=== PATIENT | male | born 2000 | race Caucasian/White ===

== ENCOUNTER 2022-09-20 07:58 | Emergency (ER) | payer MEDICAID, SELFPAY ==
[2022-09-20 08:02] VITALS: BP 160/79; PULSE 82; RESP 20; TEMP 36.7; O2SAT 99; BMI 30.7
[2022-09-20 08:34] LABS: IDNOW Serial# 55D5AD1C; Influenza A Negative (Negative); Influenza B2 Negative (Negative)
[2022-09-20 08:47] LABS: COVID-19 Test Positive (Negative); IDNOW Serial# BCCEAD1C
--- NOTE | 2022-09-20 08:47 | ED.URI ---
HPI - URI/Sore Throat General Chief Complaint: Upper Respiratory Symptoms Stated Complaint: Difficulty breathing Time Seen by Provider: 09/20/22 08:11 Source: patient Mode of arrival: ambulatory Limitations: no limitations History of Present Illness HPI Narrative: Patient is a 22-year-old male who presents to the emergency department for evaluation of productive cough with white phlegm, body aches, and intermittent shortness of breath. He denies any known sick contacts. He states he took an at home COVID-19 test which was negative. He has not taken any [id number] medications for body aches or cough. He denies fevers, chills, ear pain sore throat, chest pain, dyspnea on exertion, nausea, vomiting, abdominal pain, numbness or tingling of the extremities. Review of Systems Review of Systems: Constitutional: No fever. No chills. No weakness. No fatigue. ENT/ Mouth: No Ear Pain, no Nasal Congestion, no sore throat, No Rhinorrhea, No Swallowing Difficulty Skin: No rash or itching. Cardiovascular: No chest pain. No palpitations. Respiratory: No shortness of breath. Positive cough. Positive sputum production. Gastrointestinal: No nausea. No vomiting. No diarrhea. No abdominal pain. Genitourinary: No burning micturition. No urinary frequency. Neurologic: No headache. No dizziness. No syncope. No numbness or tingling in the extremities. Musculoskeletal: Positive myalgias No back pain. No joint pain or stiffness. Yes all other systems are reviewed and are negative PMFSH Past Medical History Attestation statement: The following information was validated with the patient. Source: old records reviewed Social History Social History Advance Directives: No Advance Directives Information Provided: No Physical Exam Vital Signs: Vital Signs: Last Vital Signs Temp 98.0 F 09/20/22 08:02 Pulse 82 09/20/22 08:02 Resp 20 09/20/22 08:02 BP 160/79 H 09/20/22 08:02 Pulse Ox 99 09/20/22 08:02 O2 Del Method 09/20/22 08:02 BMI result Body Mass Index 30.7 Appearance: Alert.?Oriented to person, place and time. No acute distress.?Normal affect. Eyes: Pupils equal, round and reactive to light.? ENT: TM normal bilaterally. Pharynx normal.?? Neck: Normal inspection.? Neck supple.??No cervical adenopathy CVS: Heart sounds normal. Normal heart rate and rhythm.? Pulses normal.?? Respiratory: No respiratory distress.? Lung sounds clear to auscultation bilaterally?? Abdomen: Soft and non-tender. Normoactive bowel sounds. Skin: Skin warm and dry.? Normal skin color.? ? Extremities: No lower extremity edema.? Neuro: Moves all extremities spontaneously. Sensation intact bilaterally. No motor deficits. Ambulates with normal steady gait. Medical Decision Making Medical Decision Making [facility] Narrative: Patient is a 22-year-old male with no reported past medical history, presenting for evaluation of upper respiratory symptoms. COVID-19 testing is positive today, he is outside the window for Paxlovid, given symptom onset 1 week ago. Influenza testing negative. At this time history and physical exam not consistent with ACS/PE/pneumonia. Well-appearing, nontoxic, afebrile, no tachycardia or tachypnea/hypoxia. Speaking clear full sentences, ambulatory with steady gait. Discussed conservative treatment including rest, hydration, Tylenol/ibuprofen as needed for fever and body aches, saline nasal spray, humidifier, qmdz-[id number] cold medication. Advised to follow-up with primary care provider as needed, discussed reasons to return back to the emergency department. All questions were answered. Patient discharged home in stable condition. Differential Diagnosis Differential Diagnoses: The differential diagnosis associated with the presentation includes (Viral upper respiratory infection, pneumonia, bronchitis) Lab Data [facility] Lab Attestation statement: I reviewed the patient's lab results. Labs: Lab Results 09/20/22 09/20/22 Range/Units 08:06 08:06 COVID-19 ([place]) Positive A (Negative) COVID-19 Clin Com See Note Influenza Type A (ETHAN) Negative (Negative) Influenza Type B (ETHAN) Negative (Negative) Influenza A & B Note See Note Tests considered The following testing was considered but not selected: Chest x-ray was considered, however lung sounds are clear throughout, no tachycardia, hypoxia, or tachypnea, low clinical suspicion for pneumonia. Chest x-ray was deferred. Prescription Management I considered prescription management with: Antiviral (Considered Paxlovid, however symptom onset 1 week ago, would be outside of 48 hour window, no prior past medical history that would place him at high risk.) Discharge Plan Discharge Clinical Impression: COVID-19 Patient Disposition: Home, Self-Care Instructions: COVID-19 (Coronavirus Disease 2019) (ED) Additional Instructions: Your flu testing today is negative. Your COVID testing is positive, which is likely the cause of your symptoms. Given you have been having symptoms for the past week, he should continue wearing a mask if you are around other individuals. Per the CDC guidelines you can end isolation after 5 days of symptoms if you are without a fever for 24 hour. Without the use of Tylenol or ibuprofen and your symptoms are improving. Be sure to rest, stay well hydrated drinking plenty of fluids, eat small frequent meals. Tylenol/ibuprofen can be used as needed for fever/pain. Qrpw-idf-ebwxkee cold medications may be helpful as well for symptoms. You may return to the emergency department with any new or worsening symptoms or concerns. Follow-up with your primary care provider as needed. Referrals: Physician,None [Primary Care Provider] - Interventions: ED Discharge Assessment Last Done: 09/20/22 09:14 Discharge Date/Time: 09/20/22 09:16
== END 2022-09-20 09:16 | disposition home or self-care (01) ==
PROVIDERS: Emergency Provider Emergency Medicine
DX: U07.1 COVID-19 (principal)
CPT/HCPCS: 87502; 87635; 99283

== ENCOUNTER 2023-07-04 08:40 | Emergency (ER) | payer MEDICAID, SELFPAY ==
--- NOTE | 2023-07-04 08:47 | ED.GENADULT ---
HPI - General Adult General Chief complaint: Overdose Stated complaint: OD,16MG NARCAN PRIOR TO EMS W/GOOD RESULT Time Seen by Provider: 07/04/23 08:45 Source: EMS Mode of arrival: EMS Limitations: altered mental status History of Present Illness HPI narrative: This is a 22-year-old male hx of IVDA presenting s/p overdose. Suspected opiates according to EMS. EMS reports patient was found on the ground by a friend/bystander who gave 60 mg of intranasal Narcan prior to their arrival. According to patient's mother she reported to EMS that patient advised drugs off line that come from [place], unclear which ones. EMS also reports that it was stated that patient took an unknown amount of Lyrica today. Not on thinners per EMS patient not answering questions. Related Data Allergies Allergy/AdvReac Type Severity Reaction Status Date / Time Unable to Assess Allergy Unverified 07/04/23 08:45 Review of Systems Review of Systems: Yes Unobtainable due to mental status PMFSH Past Medical History Attestation statement: The following information was validated with the patient. Source: old records reviewed and nursing notes reviewed Social History Social History Unable to assess alcohol history related to: Unknown Use of substances other than those prescribed or required for medical reasons: Unable to respond Advance Directives: No Advance Directives Information Provided: No Physical Exam ED Vital Signs: Vital Signs - 24 hr 07/04/23 09:03 07/04/23 11:08 07/04/23 11:12 Temperature 98 F Pulse Rate 102 H 82 Respiratory Rate 17 10 L Blood Pressure 134/82 121/63 Pulse Oximetry 98 86 L 96 Oxygen Delivery Method Room Air Room Air Nasal Cannula Oxygen Flow Rate 2 07/04/23 14:40 07/04/23 17:21 07/04/23 20:30 Temperature Pulse Rate 64 76 78 Respiratory Rate 8 L 10 L 16 Blood Pressure 127/55 L 115/70 126/66 Pulse Oximetry 99 98 100 Oxygen Delivery Method Nasal Cannula Nasal Cannula Nasal Cannula Oxygen Flow Rate 2 2 2 BMI result Body Mass Index 28.2 vss Appearance: + responding only to painful stimuli. not answering questions. Head: Normocephalic, atraumatic, no step-offs or deformities Eyes: Pupils equal, round and reactive to light.? ENT: Pharynx normal.? Neck: Normal inspection.? Neck supple.? CVS: Normal heart rate and rhythm.? Pulses normal.? Respiratory: No respiratory distress.? Breath sounds normal.? Abdomen: Soft and nontender.? Skin: Skin warm and dry.? Normal skin color.? Normal skin turgor.? Extremities: No lower extremity edema.? No calf ttp. 5/5 strength to bilateral upper and lower extremities Neuro: + responding only to painful stimuli. not answering questions. Course Reevaluation(s) Reevaluation #1: Poison Control recommends an EKG repeat in an hour and another EKG 2 hours after that. No other recommendations. Recommend close observation. Time: 09:48 Reevaluation #2: I did have a conversation with patient's mom who tells me that she found an empty bag labled etizolam 100 , tells me that patient has not been home for 2 days, he got kicked out of a friend's house, called another friend crying, was brought back to his mother's house, when he arrived he was unresponsive, 16 mg of nasal Narcan given in total with little to no effect, patient used to be an IV drug abuser however according to mom he is now sniffing drugs. He has been to rehab 5 times and usually signs out against medical advice. Mother has tried dissection 35 patient multiple times. She tells me he is inclined to use research chemical drugs and has been known to get ketamine online. He has had vague comments recently of suicide according to mother she is concerned about this. Due to presentation poor judgement & insight, polysubstance abuse, overdose, si thoughts discussed this w/ my attending Dr. De Los Santos patient to be placed on a section 12 Time: 09:50 Reevaluation #3: Salicylates, acetaminophen and ethanol negative. Patient's CBC with a normocytic anemia likely chronic, I do not suspect acute bleed at this time. Chemistry unremarkable. Total CPK 177, patient tolerating p.o. fluids, no need for IV fluids at this time. Patient's urine toxicology pending. Recovery nurse came to evaluate patient, he is far too sleepy at this time they will come back at a later time. Repeat EKGs unremarkable. Will continue to monitor. At this time to be placed into observation to allow more time for substance use disorder evaluation, care team evaluation. Additional Reevaluation(s): Patient is alert oriented x3. Patient slept in the ED for over 8 hours. Patient is not suicidal or homicidal. No personal coach. Patient does not want detox. Patient states he did not take medication to kill himself. Patient states it was accidental overdose. Patient is not suicidal. Section 12 no longer indicated. Spoke with mother who was informed of patient's present condition, re-evaluation, and plan. Gave patient phone to call mother. SPoke with Care team and they states consult was placed for ANDRES evaluation and not SI and presently patient is not suicidal. Patient discharged. Case discussed with Dr. Capellan. Medical Decision Making Medical Decision Making [facility] Narrative: 851 22 year old male presents s/p overdose recieved 16 mg of narcan PE not answering quesitons only responding to painful stimuli. Concerns for OD due to opiates and possible other substances. Will rule out aspiration. Will rule out truamatic injury to head. Unlikely traumatic injury to neck, chest, abd/pelvis. Plan- labs, UA, BOWENS, salicylate, acetaminophen, EKG Will reach out to poison control Differential Diagnosis Differential Diagnoses: The differential diagnosis associated with the presentation includes Concerns for OD due to opiates and possible other substances. Will rule out aspiration. Will rule out truamatic injury to head. Unlikely traumatic injury to neck, chest, abd/pelvis. Admission/Observation Consideration of admission/observation: Escalation of care including admission/observation considered Consult Healthcare Provider Management of the patient was discussed with: Finisher Plate (Recovery nurse ) Lab Data [facility] Lab Attestation statement: I reviewed the patient's lab results. 07/04/23 10:36 07/04/23 10:36 Labs: Lab Results 07/04/23 Range/Units 10:36 WBC 8.2 (4.8-10.8) X10*3/uL RBC 4.53 L (4.60-5.80) X10*6/uL Hgb 12.8 L (14.0-18.0) g/dl Hct 37.7 L (42.0-52.0) % MCV 83.2 (80.0-98.0) fL MCH 28.3 (27.0-33.0) pg MCHC 34.0 (31.0-36.0) g/dl RDW 13.2 (11.0-16.0) % Plt Count TNP MPV Not Reportable Immature Gran % (Auto) 0.6 H (0.0-0.4) % Neut % (Auto) 69.6 (45-73) % Lymph % (Auto) 17.9 L (20-40) % [place] % (Auto) 7.9 (2-11) % Eos % (Auto) 3.8 (0-4) % Baso % (Auto) 0.2 (0-2) % Lymph # (Auto) 1.5 (1.2-4.9) X10*3/uL [place] # (Auto) 0.7 (0.1-1.2) X10*3/uL Eos # (Auto) 0.3 (0.0-0.4) X10*3/uL Baso # (Auto) 0.0 (0.0-0.2) X10*3/uL Abs Immat Gran (auto) 0.05 H (0.00-0.03) X10*3/uL Absolute Neuts (auto) 5.7 (2.0-8.3) x10*3/uL Absolute Nucleated RBC 0.000 (0.0-0.012) X10*3/uL Nucleated RBC % (auto) 0.0 (0.0-0.2) /100WBC Smear Tech's Comments VERIFIED Sodium 142 (135-145) mmol/L Potassium 4.0 (3.3-5.1) mmol/L Chloride 106 (96-108) mmol/L Carbon Dioxide 24 (22-29) mmol/L Anion Gap 16 (12-20) BUN 11 (9-16) mg/dL Creatinine 0.77 (0.5-1.4) mg/dL Estim Creat Clear Calc 166.2 Estimated GFR > 60 Random Glucose 99 (60-115) mg/dL Calcium 9.3 (8.4-10.2) mg/dL Magnesium 2.2 (1.6-2.6) mg/dL Total Bilirubin 0.2 (0.0-1.0) mg/dL AST 20 (5-37) U/L ALT 16 (0-40) U/L Alkaline Phosphatase 82 (39-117) U/L Total Creatine Kinase 177 H (38-174) U/L Total Protein 6.8 (6.5-8.0) g/dL Albumin 3.9 (3.5-5.0) g/dL Salicylates < 5.0 L (15-30) mg/dL Acetaminophen < 17 (<30) mcg/mL Ethyl Alcohol < 10 mg/dL Independent Interpretation I performed an independent interpretation of an: Plain X-Ray (unremarkable XR/XR chest 1V IMPRESSION: Unremarkable examination. ) and CT Scan (unremarkable CT/CT head/brain wo IV con IMPRESSION: Unremarkable CT scan of the head. No evidence of acute territorial infarct or hemorrhage.) Radiology Impression Discussion of test interpretation with radiology: I have reviewed the radiologist's reading. External Record Review External record reviewed: Outpatient record Tests considered The following testing was considered but not selected: No signs of trauma to chest/abd/pelvis no need for imaging at this time Chronic Conditions Patient?s care impacted by: Other (polysubstance abuse, IVDA ) Social Determinants Patient?s care significantly limited by Social Determinants of Health including: Inadequate housing, Low income, Alcoholism and drug addiction in family, Problems related to primary support group, Unemployment, Problems related to employment and Other Social Determinant of Health Critical Care Time Critical Care Time Critical Care Time: Yes Total Critical Care Time: 45 Attestation: I attest to this time spent taking care of the patient, obtaining history, physical, reviewing labs, imaging, speaking to my attending, speaking to specialist. Discharge Plan Discharge Clinical Impression: Overdose, Polysubstance abuse Patient Disposition: Home, Self-Care Instructions: Polysubstance Abuse (ED), Adult Overdose (ED) Additional Instructions: Please follow-up with your primary care provider and detox programs. Return to the ED immediately for any suicidal/homicidal ideation, auditory/visual hallucinations, any physical complaints, or any other concerning symptoms. Interventions: ED Discharge Assessment Last Done: 07/04/23 21:05 Discharge Date/Time: 07/04/23 21:05 Print Language: Vietnamese
[2023-07-04 09:03] VITALS: BP 107/62; BP 134/82; PULSE 102; PULSE 90; RESP 17; TEMP 36.6; O2SAT 96; O2SAT 98; BMI 28.2
--- NOTE | 2023-07-04 09:19 | PC.NURSE ---
BELONGINGS IN [place]
--- NOTE | 2023-07-04 09:22 | PC.NURSE ---
PT BIBA FROM HIS MOMS HOUSE WHERE HE WAS DISCOVERED BY HIS FRIEND AND HIS MOTHER TO BE UNRESPONSIVE, HYPOXIC. FRIEND ADMINISTERED 16MG NASAL NARCAN. PT SAo2 HIGH 90S ON ROOM AIR. PT WITH DECREASED RESPONSIVENESS, RESPONSIVE TO PAINFUL STIMULI. CHANGED INTO HOSPITAL GOWN, BELONGINGS IN . PT HAS A HX OF OVERDOSE INCLUDING BUYING DRUGS OFF THE [employer]. HX OF KETAMINE USE. UNKNOWN WHAT PT INJESTED TODAY, EMS REPORTED PT HAS LYRICA EVERYWHERE AND FRIEND REPORTED LYRICA USE. PTS PUPILS DILATED, NYSTAGMUS WHEN HE TRACKS STAFF, REACTIVE TO LIGHT.
--- NOTE | 2023-07-04 09:42 | PC.NURSE ---
SPOKE WITH POISON CONTROL 0931 SUPPORTIVE CARE, LAB WORK AND REPEAT EKG IN 1 HOUR
[2023-07-04 11:08] VITALS: BP 121/63; PULSE 82; RESP 10; O2SAT 86
[2023-07-04 11:12] VITALS: O2SAT 96
--- NOTE | 2023-07-04 11:12 | PC.NURSE ---
pt asleep, RR10, SaO2 dropping into high 80s, (86% on room air). placed on 2L NC with good effect, O2 up to 96%
[2023-07-04 11:21] LABS: Alanine Aminotransferase 16 U/L (0-40); Albumin Level 3.9 g/dL (3.5-5.0); Alkaline Phosphatase 82 U/L (39-117); Anion Gap 16 (12-20); Aspartate Amino Transferase 20 U/L (5-37); Bilirubin Total 0.2 mg/dL (0.0-1.0); Blood Urea Nitrogen 11 mg/dL (9-16); Calcium 9.3 mg/dL (8.4-10.2); Carbon Dioxide 24 mmol/L (22-29); Chloride 106 mmol/L (96-108); Creatinine Clr Calc Pharmacy 166.2; Estimated Glomerular Filt Rate > 60; Ethanol < 10 mg/dL; Glucose Random 99 mg/dL (60-115); Magnesium 2.2 mg/dL (1.6-2.6); Sodium 142 mmol/L (135-145); Total Protein 6.8 g/dL (6.5-8.0)
--- NOTE | 2023-07-04 12:32 | MHC.RECOVRN ---
Addendum entered by Tammy Horn RN 07/04/23 17:44: No change in patient status, unable to wake up. Original Note: This writer technical publications attempted to meet with patient to complete SUDE. Pt sedated, unable to wake up. This writer technical publications will continue to monitor and will complete SUDE when patient awake, alert.
[2023-07-04 14:40] VITALS: BP 127/55; PULSE 64; RESP 8; O2SAT 99
--- NOTE | 2023-07-04 15:48 | PC.NURSE ---
pt continue to be asleep, RR even and unlabored. NAD. pt remains on 2L NC. awaiting urine when pt awakes. spoke with pts mom who reported pt has been sending her SI statements via text as well as verbally maing suicidal statements. pts mom reports that last week pt made a suicidal statement when she kicked him out of the house, he then drove to [place] but instead drove to the [employer] boarder when his drug paraphernalia was confiscated. pts mother reports he was dropped at her house this morning unresponsive by one of his friends .
[2023-07-04 17:21] VITALS: BP 115/70; PULSE 76; RESP 10; O2SAT 98
--- NOTE | 2023-07-04 17:22 | PC.NURSE ---
pt remains asleep, NAD, RR even and unlabored. awaiting urine. pupils pinpoint
--- NOTE | 2023-07-04 19:09 | PC.NURSE ---
assumed care of pt at this time. Dr. Pastor at bedside for ultrasound guided IV as pt tough stick; 20g L. AC. sats 100% on 2L NC. nsr on monitor 79 bpm. pt asleep respirations even and unlabored.
[2023-07-04 20:30] VITALS: BP 126/66; PULSE 78; RESP 16; O2SAT 100
--- NOTE | 2023-07-04 20:47 | PC.NURSE ---
pt awoke; started pulling off heart monitor/bp cuff. sitter at bedside to attempt to redirect pt. security, Kingsleyguerrero MENA and this RN to bedside. pt denies si/hi; requesting to be d/c; reports I accidentally took too much, I wasn't trying to hurt myself. PA on phone with pt mother at this time. pt remains in stretcher however continues to swear at staff.
--- NOTE | 2023-07-04 21:01 | PC.NURSE ---
care team consult no longer necessary per Kingsley MENA; per TRINA pt is medically cleared and able to be d/c; pt escorted out by security.
== END 2023-07-04 21:05 | disposition home or self-care (01) ==
PROVIDERS: Physician Assistant; Emergency Provider Emergency Medicine
DX: T42.6X1A Poisoning by other antiepileptic and sedative-hypnotic drugs, accidental (unintentional), initial encounter (principal); Y92.9 Unspecified place or not applicable; R51.9 Headache, unspecified; R06.02 Shortness of breath; Z79.899 Other long term (current) drug therapy
CPT/HCPCS: 36415; 70450; 71045; 80053; 80143; 80179; 80307; 82550; 83735; 85025; 93005; 99284; 99285

== ENCOUNTER 2024-06-04 23:21 | Emergency (ER) | payer MEDICAID, SELFPAY ==
--- NOTE | ~2024-06-04 | XR_ITS ---
EXAMINATION: XR FOREARM, RIGHT CLINICAL INFORMATION: Status post fall COMPARISON: None available. TECHNIQUE: AP and lateral views of the right forearm were obtained. FINDINGS: Articular alignment is anatomic. On the AP view there is subtle cortical irregularity along the radial head, and on the lateral view there is a possible elbow effusion overall raising concern for subtle fracture. Remainder of the forearm appears unremarkable. XR/XR forearm RT 2V IMPRESSION: Subtle cortical irregularity along the radial head, suspicious for fracture in the setting of elbow effusion. Evaluation with dedicated elbow radiographs may be helpful. Electronically signed by: Israel Fontana MD 06/05/2024 03:55 AM EDT
--- NOTE | ~2024-06-04 | XR_ITS ---
EXAMINATION: XR SHOULDER, RIGHT CLINICAL INFORMATION: Pain after fall COMPARISON: None available. TECHNIQUE: Three views of the right shoulder. FINDINGS: Glenohumeral alignment is anatomic. No acute fracture is seen. The acromioclavicular joint appears intact. XR/XR shoulder RT min 2V IMPRESSION: No acute findings. Electronically signed by: Israel Fontana MD 06/05/2024 12:47 AM EDT
--- NOTE | ~2024-06-04 | XR_ITS ---
EXAMINATION: XR ELBOW, RIGHT CLINICAL INFORMATION: Question fracture COMPARISON: Forearm radiographs from the same day TECHNIQUE: AP, lateral, and oblique views of the right elbow. FINDINGS: Osseous alignment is anatomic. There is subtle cortical irregularity of the radial head and a slight band of sclerosis at the head/neck junction, suspicious for an essentially nondisplaced fracture. Joint effusion is noted. XR/XR elbow RT min 3V IMPRESSION: Findings suspicious for an essentially nondisplaced fracture of the radial head. Joint effusion. Electronically signed by: Israel Fontana MD 06/05/2024 05:07 AM EDT
--- NOTE | ~2024-06-04 | XR_ITS ---
EXAMINATION: XR RIBS, RIGHT CLINICAL INFORMATION: Status post fall COMPARISON: 07/04/2023 chest x-ray TECHNIQUE: 3 views of the right ribs were obtained. FINDINGS: There is subtle focal cortical irregularity along the lateral right seventh rib on a single view, suspicious for nondisplaced fracture in the setting of trauma. The lungs are clear with no focal consolidation. No evidence of pneumothorax, pulmonary edema, or pleural effusions. The cardiomediastinal contour is unremarkable. XR/XR ribs RT min 3V w CXR1V IMPRESSION: Subtle focal cortical irregularity along the lateral right seventh rib, suspicious for nondisplaced fracture in the setting of trauma. Electronically signed by: Israel Fontana MD 06/05/2024 03:59 AM EDT
[2024-06-04 23:35] VITALS: BP 121/86; PULSE 116; RESP 16; TEMP 37; O2SAT 97; BMI 27.7
[2024-06-05] MEDS: Acetaminophen 325 MG TABLET 650 MG PO (00:23)
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
[2024-06-05 05:50] VITALS: BP 121/86; PULSE 116; RESP 16; TEMP 37; O2SAT 97
== END 2024-06-05 05:50 | disposition home or self-care (01) ==
PROVIDERS: Emergency Provider Internal Medicine
DX: S22.31XA Fracture of one rib, right side, initial encounter for closed fracture (principal); S52.611A Displaced fracture of right ulna styloid process, initial encounter for closed fracture; V19.88XA Pedal cyclist (driver) (passenger) injured in other specified transport accidents, initial encounter; F11.20 Opioid dependence, uncomplicated; Y93.55 Activity, bike riding; Y92.410 Unspecified street and highway as the place of occurrence of the external cause; Y99.9 Unspecified external cause status
CPT/HCPCS: 71101; 73030; 73080; 73090; 99283; 99284

== ENCOUNTER 2024-06-08 08:30 | Outpatient (REF) | payer MEDICAID, SELFPAY ==
--- NOTE | ~2024-06-08 | XR_ITS ---
EXAMINATION: XR ELBOW, RIGHT CLINICAL INFORMATION: Right elbow pain. COMPARISON: 06/05/2024 TECHNIQUE: AP, lateral, and oblique views of the right elbow. FINDINGS: Nondisplaced transverse fracture at the radial neck, unchanged. Small joint effusion. No new fractures. Mild soft tissue swelling at the elbow. Joint spaces well-preserved. XR/XR elbow RT min 3V IMPRESSION: Unchanged nondisplaced transverse fracture at the radial neck. Electronically signed by: Cricket Mcdaniel MD 06/14/2024 05:14 PM EDT
== END 2024-06-08 08:31 | disposition home or self-care (01) ==
LOC: HO.HOSX 08:30
DX: M25.521 Pain in right elbow (principal)
CPT/HCPCS: 29075; 73080; 99212

== ENCOUNTER 2024-06-08 09:01 | Outpatient (AMB) | payer MEDICAID, SELFPAY ==
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
== END 2024-06-08 09:57 | disposition home or self-care (01) ==
DX: M25.531 Pain in right wrist (principal); V18.0XXA Pedal cycle driver injured in noncollision transport accident in nontraffic accident, initial encounter; S52.125A Nondisplaced fracture of head of left radius, initial encounter for closed fracture
CPT/HCPCS: 29075; 99203

== ENCOUNTER 2024-06-09 19:50 | Emergency (ER) | payer MEDICAID, SELFPAY ==
--- NOTE | ~2024-06-09 | XR_ITS ---
EXAMINATION: XR RIBS, RIGHT CLINICAL INFORMATION: Seventh rib pain. [place] a pop COMPARISON: None available. TECHNIQUE: Single view chest and 3 views of the right ribs were obtained. FINDINGS: Lungs are clear. No consolidation, pneumothorax, or pleural effusion. The cardiomediastinal silhouette and pulmonary vasculature are normal. Osseous structures are unremarkable. Ribs are intact. No fractures are identified. XR/XR ribs RT min 3V w CXR1V IMPRESSION: Unremarkable examination. Electronically signed by: Sean Diaz MD 06/10/2024 12:41 AM EDT
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
[2024-06-09 20:44] VITALS: BP 119/62; PULSE 104; RESP 16; TEMP 36.5; O2SAT 97; BMI 27.5
[2024-06-10] VITALS: BP 145/83; PULSE 101; RESP 16; TEMP 36.6; O2SAT 95
[2024-06-10 01:21] VITALS: BP 145/83; PULSE 101; RESP 16; TEMP 36.6; O2SAT 95
== END 2024-06-10 01:22 | disposition home or self-care (01) ==
PROVIDERS: Emergency Provider Emergency Medicine Emergency Medical Services
DX: S22.41XA Multiple fractures of ribs, right side, initial encounter for closed fracture (principal); S20.211A Contusion of right front wall of thorax, initial encounter; R07.81 Pleurodynia; V19.9XXA Pedal cyclist (driver) (passenger) injured in unspecified traffic accident, initial encounter; Y93.89 Activity, other specified; Y92.488 Other paved roadways as the place of occurrence of the external cause; Y99.8 Other external cause status; Z79.899 Other long term (current) drug therapy
CPT/HCPCS: 71101; 99283; 99284

== ENCOUNTER 2024-06-10 16:38 | Emergency (ER) | payer MEDICAID, SELFPAY ==
--- NOTE | 2024-06-10 16:55 | ED_ITS ---
HPI - General Adult General Chief complaint: Extremity Problem Stated complaint: removed his cast Time Seen by Provider: 06/10/24 17:34 Source: patient Mode of arrival: ambulatory Limitations: no limitations History of Present Illness HPI narrative: Patient is a 23-year-old male under to emergency department for re-application of thumb spica splint. He reports that it began shedding fiberglass and got wet approximately 3 hours prior to arrival. Has a known nondisplaced radial head fracture, and scaphoid tubercle tenderness, evaluated by orthopedics 06/08/[address] is awaiting urgent CT to rule out scaphoid fracture. He states since the splint came off he has been using the hand normally, lifting things even. States that he was not having any pain to this area. Related Data Home Medications ?Medication ?Instructions ?Recorded ?Confirmed methadone 10 mg tablet 115 mg PO DAILY 06/08/24 Previous Rx's ?Medication ?Instructions ?Recorded Rib belt #1 ea 06/10/24 Allergies Allergy/AdvReac Type Severity Reaction Status Date / Time No Known Allergies Allergy Verified 06/10/24 16:57 Review of Systems Review of Systems: Yes all other systems are reviewed and are negative [facility] Past Medical History Attestation statement: The following information was validated with the patient. Source: old records reviewed Social History Social History Unable to assess alcohol history related to: Unknown Substance Use Type: Crack/Cocaine and Marijuana Advance Directives: No Advance Directives Information Provided: Yes Do you have a plan to hurt others: No Plan Physical Exam ED Vital Signs: Vital Signs - 24 hr 06/10/24 16:56 Temperature 98.4 F Pulse Rate 99 Respiratory Rate 18 Blood Pressure 126/88 Pulse Oximetry 97 Oxygen Delivery Method Room Air BMI result Body Mass Index 26.9 Appearance: Alert.?Oriented to person, place and time. No acute distress.?Normal affect. CVS: Heart sounds normal. Normal heart rate and rhythm.? Pulses normal.?? Respiratory: No respiratory distress.? Lung sounds clear to auscultation bilaterally?? Skin: Skin warm and dry.? Normal skin color.? Extremities: No lower extremity edema.? Mild tenderness upon palpation to the scaphoid tubercle Neuro: Moves all extremities spontaneously. Sensation intact bilaterally. Ambulates with normal steady gait. Procedures Orthopedic Splinting/Casting Injury #1: Side: left Upper Extremity Injury Location: wrist Upper Extremity Immobilizer: thumb spica Medical Decision Making Medical Decision Making MDM Narrative: Patient is a 23-year-old male who presents to the emergency department for evaluation. Reporting that the fiberglass thumb spica splint placed by orthopedics on 06/08/2024, was falling apart and may have additionally gotten wet. There is no splint in place at this time. Of note, after his initial injury he was placed in a posterior arm splint in the emergency department due to concern for nondisplaced radial head fracture which he removed after leaving the department because he was not able to play his video games with this on. On review of his medical record, due to significant tenderness at the scaphoid tubercle he was placed in this thumb spica splint and was referred for urgent CT to rule out scaphoid fracture. As of this time CT has not yet been obtained. He has mild tenderness on today's examination. Previously he was having pain when moving the arm/wrist or with lifting things. He states that he has been using the arm normally since it was removed 3 hours prior to arrival, has been lifting things and reports no pain. Discussed this case with ED attending Dr. Gilbert, recommends replacement with velcro thumb spica, and outpatient follow- up with orthopedics Differential Diagnosis Differential Diagnoses: The differential diagnosis associated with the presentation includes (See narrative above) External Record Review External record reviewed: Outpatient record Prescription Management I considered prescription management with: Pain Medication (Ac etaminophen/ibuprofen) Discharge Plan Discharge Clinical Impression: Wrist pain, right Patient Disposition: Home, Self-Care Additional Instructions: As discussed, it is important that you leave the splint on at all times and follow-up with orthopedics as scheduled, follow suit with your outpatient CT to evaluate further for fracture. Prescriptions: No Action (DME) Rib belt See Rx Instructions .ROUTE .MEDSUPPLY Qty: 1 0RF Rx Instructions: Wear the rib belt for 1-2 weeks as needed for rib pain methadone 10 mg tablet 115 mg PO DAILY Referrals: Deuce Ward PA [Physician [facility]] - Discharge Date/Time: 06/10/24 18:05 Print Language: Pashto
[2024-06-10 16:56] VITALS: BP 126/88; PULSE 99; RESP 18; TEMP 36.9; O2SAT 97; BMI 26.9
== END 2024-06-10 18:05 | disposition home or self-care (01) ==
LOC: HO.ED 18:05
PROVIDERS: Emergency Provider Emergency Medicine Emergency Medical Services
DX: M25.531 Pain in right wrist (principal)
CPT/HCPCS: 99281

== ENCOUNTER 2024-07-19 22:27 | Emergency (ER) | payer MEDICAID, SELFPAY ==
--- NOTE | ~2024-07-19 | XR_ITS ---
EXAMINATION: XR WRIST, RIGHT CLINICAL INFORMATION: Injury. Pain. COMPARISON: None available. TECHNIQUE: PA, lateral, and oblique views of the right wrist. FINDINGS: The bones and soft tissues are normal. No fracture. Alignment is anatomic with normal joint spaces. No erosions or abnormal soft tissue calcifications. XR/XR wrist RT w scaphoid IMPRESSION: No significant abnormality identified. Electronically signed by: Nba Gomez MD 07/20/2024 01:33 AM EDT
--- NOTE | ~2024-07-19 | XR_ITS ---
EXAMINATION: XR FOREARM, RIGHT CLINICAL INFORMATION: Pain. Fall. COMPARISON: Elbow x-ray performed June 08, 2024 TECHNIQUE: AP and lateral views of the right forearm were obtained. FINDINGS: There is a fracture through the neck of the radius with interval development of lucency along the fracture fragments without significant displacement. No other fracture is seen. No definitive significant joint effusion. Soft tissues are unremarkable. XR/XR forearm RT 2V IMPRESSION: Fracture through the neck of the radius with interval development of lucency along the fracture fragments without significant displacement. Refracturing considered. Electronically signed by: Nba Gomez MD 07/20/2024 01:31 AM EDT
[2024-07-19 22:36] VITALS: BP 139/80; PULSE 109; RESP 18; TEMP 36.8; O2SAT 94; BMI 28.0
--- NOTE | 2024-07-20 00:03 | ED_ITS ---
HPI - Extremity Problem General Chief complaint: Extremity Injury, Upper Stated complaint: rt arm pain Time Seen by Provider: 07/19/24 23:51 Source: patient Mode of arrival: ambulatory Limitations: no limitations History of Present Illness ED Provider: Dr. Crista Pastor HPI Narrative: patient comes to the emergency room complaining of ongoing right hand pain and right forearm pain. Patient known to have radial head fracture. Patient was seen by Orthopedics 12 days ago. Seems that patient is supposed to be using a thumb spica and splint for the right forearm. Patient is not wearing either. Related Data Home Medications ?Medication ?Instructions ?Recorded ?Confirmed methadone 10 mg tablet 115 mg PO DAILY 06/08/24 Previous Rx's ?Medication ?Instructions ?Recorded Rib belt #1 ea 06/10/24 Allergies Allergy/AdvReac Type Severity Reaction Status Date / Time No Known Allergies Allergy Verified 07/19/24 22:52 Review of Systems Review of Systems: Constitutional : No Weight loss, No Fever, No Chills, No Night Sweats, No Fatigue, No Malaise ENT/Mouth : No Hearing loss, No Ear Pain, No Nasal Congestion, No Sinus Pain, No Hoarseness, No sore throat, No Rhinorrhea, No Swallowing Difficulty Eyes: No Eye Pain, No Swelling, No Redness, No Foreign Body, No Discharge, No Vision Changes Cardiovascular : No Chest Pain, No SOB, No Dyspnea on Exertion, No Orthopnea, No Edema, No Palpitations Respiratory : No Cough, No Sputum, No Wheezing, No Smoke Exposure, No Dyspnea Gastrointestinal : No Nausea, No Vomiting, No Diarrhea, No Constipation, No abdominal Pain, No Hematochezia, No Melena Genitourinary : no irregular bleeding, No Dysuria, No Urinary Frequency, No Hematuria, No Urinary Incontinence, No Urgency, No Flank Pain, No Urinary Flow Changes, No Hesitancy Musculoskeletal : Ongoing pain in the right forearm and right hand. No joint pain, No Myalgias, No Joint Swelling Skin : No Skin Lesions, No rash Neuro : No Weakness, No Numbness, No Paresthesias, No Loss of Consciousness, No Dizziness, No Headache Psych : No Anxiety/Panic, No Depression, No SI/HI/AH/VH, No Social Issues, Heme/Lymph: No Bruising, No Bleeding,No Lymphadenopathy Endocrine : No Polyuria, No Polydipsia, No Temperature Intolerance [facility] Social History Social History Unable to assess alcohol history related to: Unknown Smoked in Last 30 Days: Yes Substance Use Type: Marijuana Advance Directives: No Advance Directives Information Provided: No Do you have a plan to hurt others: No Plan Physical Exam Vital Signs: Vital Signs: Last Vital Signs Temp 98.3 F 07/20/24 01:41 Pulse 78 07/20/24 01:41 Resp 18 07/20/24 01:41 BP 119/64 07/20/24 01:41 Pulse Ox 96 07/20/24 01:41 O2 Del Method Room Air 07/20/24 01:41 BMI result Body Mass Index 28.0 Const: Other: Appearance: Alert. Oriented X3. No acute distress. Eyes: Pupils equal, round and reactive to light. ENT: Pharynx normal. Neck: Normal inspection. Neck supple. No lymph nodes noted. No crepitus CVS: Normal heart rate and rhythm. Pulses normal. Normal S1 and S2 Respiratory: No respiratory distress. Breath sounds normal. No Wheezing. No rales Abdomen: Soft and nontender. No rigidity. No distention. Skin: Skin warm and dry. Normal skin color. Normal skin turgor. Extremities: No obvious deformity in the right arm, patient complaining of pain in the right wrist and right forearm. Neuro: Oriented X 3. No motor deficit. No sensory deficit. Moving all extremities. No slurred speech. CN 2 through 12 grossly intact Psych: calm, cooperative, normal affect Medical Decision Making Medical Decision Making MDM Narrative: X-rays of the wrist do not show any obvious scaphoid fracture. There is a known fracture through the neck of the radius - is likely that patient has refractured his arm. patient keeps taking his splint off. - I discussed with the patient that I recommend wrist splinting his arm and wrist, Patient refused. Differential Diagnosis Differential Diagnoses: The differential diagnosis associated with the presentation includes ( radial fracture, dislocation, contusion, scaphoid fracture) Discharge Plan Discharge Clinical Impression: Closed fracture of radial head Patient Disposition: Home, Self-Care Instructions: Arm Fracture in Adults (ED) Additional Instructions: Please follow-up with your primary care physician tomorrow. If you have any worsening or new symptoms, please return to the emergency room or call 911 Prescriptions: No Action (DME) Rib belt See Rx Instructions .ROUTE .MEDSUPPLY Qty: 1 0RF Rx Instructions: Wear the rib belt for 1-2 weeks as needed for rib pain methadone 10 mg tablet 115 mg PO DAILY Referrals: Jame Davis PA-C [Physician Delinquency Counselor] - 1 day Print Language: Cymro
[2024-07-20 01:41] VITALS: BP 119/64; PULSE 78; RESP 18; TEMP 36.8; O2SAT 96
--- NOTE | 2024-07-20 01:43 | PC.NURSE ---
Pt resting on stretcher eyes closed, easily awoken. A&Ox3 skin pwd respirations even unlabored. Offers no complaints. Awaiting imaging results.
[2024-07-20] MEDS: Ibuprofen 600 MG TABLET PO (02:04)
[2024-07-20 02:05] VITALS: BP 119/64; PULSE 78; RESP 18; TEMP 36.8; O2SAT 96
== END 2024-07-20 02:06 | disposition home or self-care (01) ==
PROVIDERS: Emergency Provider Emergency Medicine
DX: S52.121A Displaced fracture of head of right radius, initial encounter for closed fracture (principal); M79.601 Pain in right arm; X58.XXXA Exposure to other specified factors, initial encounter; Y93.89 Activity, other specified; Y92.89 Other specified places as the place of occurrence of the external cause; Y99.8 Other external cause status
CPT/HCPCS: 73090; 73110; 99283; 99284

== ENCOUNTER 2024-07-20 20:32 | Emergency (ER) | payer MEDICAID, SELFPAY ==
--- NOTE | ~2024-07-20 | XR_ITS ---
EXAMINATION: XR WRIST, RIGHT CLINICAL INFORMATION: Pain. COMPARISON: July 20, 2024. TECHNIQUE: PA, lateral, and oblique views of the right wrist. FINDINGS: The bones and soft tissues are normal. No fracture. Alignment is anatomic with normal joint spaces. No erosions or abnormal soft tissue calcifications. XR/XR wrist RT min 3V IMPRESSION: No significant abnormality identified. Electronically signed by: Nba Gomez MD 07/21/2024 06:51 AM EDT
[2024-07-20 20:34] VITALS: BP 139/88; PULSE 114; RESP 16; TEMP 37.2; O2SAT 96; BMI 27.7
--- NOTE | 2024-07-20 23:36 | ED.EXTPRO ---
HPI - Extremity Problem General Chief complaint: Extremity Injury, Upper Stated complaint: fall down the stairs, reinjured wrist seen 07/19 Time Seen by Provider: 07/20/24 23:36 History of Present Illness ED Provider: Юлия BROWN Narrative: The patient is a 23-year-old male. The patient injured his right arm almost 2 months ago when he fell. He had wrist pain and elbow pain. He was found to have a radial head fracture. Followed up with Orthopedics and he was placed in a thumb spica splint although there was no definite abnormality seen on his scaphoid bone. The patient says that he was subsequently incarcerated. He came to the emergency room approximately 24 hours ago because he had not had any follow up in [facility]. He had not sustained any new injuries at that point. He had x-rays of his forearm and wrist. Forearm x-ray showed his previous proximal radius fracture. The patient says that this afternoon, a few hours before arriving again in the emergency room this evening, he had fallen down approximately 5 steps and re-injured his right arm at the wrist. He does not feel that he re-injured the elbow at all. He is concerned about the wrist. He hit his head but had no loss of consciousness. He has no neck pain or pain with moving his neck. No other significant injuries. Related Data Home Medications ?Medication ?Instructions ?Recorded ?Confirmed methadone 10 mg tablet 115 mg PO DAILY 06/08/24 Previous Rx's ?Medication ?Instructions ?Recorded Rib belt #1 ea 06/10/24 ibuprofen 600 mg tablet 600 mg PO TID PRN fever or pain 07/20/24 #20 tabs Allergies Allergy/AdvReac Type Severity Reaction Status Date / Time No Known Allergies Allergy Verified 07/20/24 20:37 Review of Systems Review of Systems: Yes all other systems are reviewed and are negative [facility] Social History Social History Unable to assess alcohol history related to: Unknown Substance Use Type: Marijuana Advance Directives: No Physical Exam Vital Signs: Vital Signs: Last Vital Signs Temp 99.0 F 07/21/24 01:42 Pulse 95 07/21/24 01:42 Resp 16 07/21/24 01:42 BP 139/88 07/21/24 01:42 Pulse Ox 99 07/21/24 01:42 O2 Del Method Room Air 07/21/24 01:42 BMI result Body Mass Index 27.7 Const: Other: The patient is a somewhat unkempt 23-year-old. He is awake and alert. He has a Velcro thumb spica splint on his right wrist. He was very obviously moving his right elbow very easily. He did not seem in distress. HEENT: Other: Face is symmetrical. Mucous membranes moist. Eyes: General: appearance normal, both eyes and all related structures Neck: Other: No posterior midline C-spine tenderness. Moving his neck easily. C-spine is clinically clear. Resp: Effort & Inspection: normal respiratory effort Auscultation: clear to auscultation bilaterally Cardio: Rate: regular rate Rhythm: regular rhythm Heart sounds: S1 normal heart sound present and S2 normal heart sound present Skin: Other: The skin is intact Neuro: Other: The patient is awake and alert with a normal mental status. He has normal strength and sensation in the fingers of the right hand. Extrem: Other: Patient was obviously using his right elbow very easily and spontaneously. He had no right elbow tenderness or swelling. The patient was wearing a fairly sophisticated looking velcro thumb spica splint on the right arm. This was removed. There is no soft tissue swelling to the right wrist. There is some tenderness to the dorsum of the right wrist but no snuffbox tenderness. He is reasonably good range of motion of the right wrist and of the fingers of the hand. Medical Decision Making Medical Decision Making MDM Narrative: The patient, who would come to the emergency room approximately 24 hours ago and had x-rays of the right wrist and the right forearm returns after having fallen down stairs in the interval and is concerned about his right wrist. His right elbow exam is very reassuring. His right wrist exam shows some tenderness on the dorsum of the right wrist but no deformity or snuffbox tenderness. My reading of his plain film of the right wrist is unremarkable. I think he may resume his use of the thumb spica splint he has been wearing and follow up with Orthopedics. Discharge Plan Discharge Clinical Impression: Right wrist injury, Fall Patient Disposition: Home, Self-Care Additional Instructions: I do not think that you sustained any serious new injury to your right wrist. Please plan on following up with the orthopedic office to talk about your wrist at greater length. Continue to wear the wrist splint you have. Return to the emergency room if significantly worse. Prescriptions: No Action (DME) Rib belt See Rx Instructions .ROUTE .MEDSUPPLY Qty: 1 0RF Rx Instructions: Wear the rib belt for 1-2 weeks as needed for rib pain ibuprofen 600 mg tablet 600 mg PO TID PRN (Reason: fever or pain) Qty: 20 0RF methadone 10 mg tablet 115 mg PO DAILY [place] [facility] [facility] [place] Group] (right wrist injury) Interventions: ED Discharge Assessment Last Done: 07/21/24 01:42 Discharge Date/Time: 07/21/24 00:30 Print Language: Hebrew
[2024-07-21 01:42] VITALS: BP 139/88; PULSE 95; RESP 16; TEMP 37.2; O2SAT 99
== END 2024-07-21 00:30 | disposition home or self-care (01) ==
PROVIDERS: Emergency Provider Emergency Medicine
DX: S69.91XA Unspecified injury of right wrist, hand and finger(s), initial encounter (principal); W10.8XXA Fall (on) (from) other stairs and steps, initial encounter; M25.531 Pain in right wrist; Y93.89 Activity, other specified; Y92.89 Other specified places as the place of occurrence of the external cause; Y99.8 Other external cause status
CPT/HCPCS: 73110; 99282; 99283

== ENCOUNTER 2024-08-03 19:18 | Emergency (ER) | payer MEDICAID, SELFPAY ==
[2024-08-03 19:24] VITALS: BP 149/93; PULSE 114; RESP 18; O2SAT 96; BMI 27.9
--- NOTE | 2024-08-03 19:24 | ED_ITS ---
HPI - General Adult General Chief complaint: Dental/Oral Stated complaint: abscess Lt side jaw Time Seen by Provider: 08/03/24 22:42 History of Present Illness ED Provider: Юлия BROWN narrative: The patient is a 23-year-old male who has been having problems with left sided dental pain for the last several weeks. He says that in the middle of the month last month he had a toothache and was put on amoxicillin an improved. He finished a course of amoxicillin almost 2 weeks ago and was doing well until yesterday when he started having pain after smoking a joint. He says this morning the left side of his face was quite swollen. He had pain and was taken ibuprofen and acetaminophen for the pain today. He comes to the emergency room because of this pain and swelling but he says the swelling has gotten spontaneously significantly better than this morning. Related Data Home Medications ?Medication ?Instructions ?Recorded ?Confirmed methadone 10 mg tablet 115 mg PO DAILY 06/08/24 Previous Rx's ?Medication ?Instructions ?Recorded Rib belt #1 ea 06/10/24 ibuprofen 600 mg tablet 600 mg PO TID PRN fever or pain 07/20/24 #20 tabs amoxicillin 875 mg-potassium 1 tab PO BID #14 tabs 08/03/24 clavulanate 125 mg tablet ibuprofen 600 mg tablet 600 mg PO Q6H PRN pain #14 tabs 08/03/24 Allergies Allergy/AdvReac Type Severity Reaction Status Date / Time No Known Allergies Allergy Verified 08/03/24 19:25 Review of Systems 2 Review of Systems: Yes all other systems are reviewed and are negative [facility] Social History Social History Unable to assess alcohol history related to: Unknown Substance Use Type: Marijuana Advance Directives: No Advance Directives Information Provided: No Physical Exam ED Vital Signs: Vital Signs - 24 hr 08/03/24 19:24 08/03/24 22:13 08/03/24 23:15 Temperature 98.2 F 0 F L Pulse Rate 114 H 79 0 L Respiratory Rate 18 16 0 L Blood Pressure 149/93 H 127/66 0/0 L Pulse Oximetry 96 100 0 L Oxygen Delivery Method Room Air Room Air BMI result Body Mass Index 27.9 Const Other: The patient is awake, alert, pleasant, cooperative. He does not seem acutely toxic or in distress. HENMT Other: There is some mild apparent swelling to the soft tissues in the region of the left mandible. No erythema to the overlying skin. The patient is able to fully open his mouth. No trismus. The patient has some tenderness with the palpation of the buccal recess opposite the last mandibular molar. I felt some swelling in the mucosa of this area but no definite fluctuance. Eyes General: appearance normal, both eyes and all related structures Neck Other: Moving his neck easily. No significant adenopathy. Resp Effort & Inspection: normal respiratory effort Auscultation: clear to auscultation bilaterally Cardio Rate: regular rate Rhythm: regular rhythm Heart sounds: S1 normal heart sound present and S2 normal heart sound present Skin Other: There is some mild soft tissue swelling to the skin overlying the left mandible but there is no erythema. Neuro Other: The patient is awake and alert. Face movements are normal. Speech is clear. Moves extremities normally and appropriately. Gait steady. Course Course Course Narrative: This is an RME done by TRINA Brennan: Additional HPI, ROS, PE not included below will be deferred to primary provider. 23 year old male hx of daily smoker, opiate use disorder presents w/ left sided jaw and tooth pain. Recent tooth infection. Not followed by a dentist as he doesnt have dental coverage. Taking ibuprofen and tylenol as needed for pain Plan- labs, inflammatory markers Medications Administered Discontinued Medications Generic Name Dose Route Start Last Admin Trade Name Freq PRN Reason Stop Dose Admin Amoxicillin/Clavulanate Potassium 875 mg 08/03/24 22:53 08/03/24 23:31 Amoxicillin/Potassium Clav 875 Mg Tablet PO 08/03/24 22:54 875 mg ONCE ONE Administration Medical Decision Making Medical Decision Making [facility] Narrative: Patient presents with a I think is a dental infection related to tooth #17. I do not think there is any drainable abscess collection at this point. I believe some spontaneous drainage has already occurred. The patient will be started on Augmentin. Lab Data 08/03/24 22:36 08/03/24 22:36 Labs: Lab Results 08/03/24 Range/Units 22:36 WBC 7.8 (4.8-10.8) X10*3/uL RBC 3.96 L (4.60-5.80) X10*6/uL Hgb 11.6 L (14.0-18.0) g/dl Hct 33.8 L (42.0-52.0) % MCV 85.4 (80.0-98.0) fL MCH 29.3 (27.0-33.0) pg MCHC 34.3 (31.0-36.0) g/dl RDW 14.1 (11.0-16.0) % Plt Count 234 (160-400) X10*3/uL MPV 9.2 L (9.4-12.4) fL Immature Gran % (Auto) 0.3 (0.0-0.4) % Neut % (Auto) 66.0 (45-73) % Lymph % (Auto) 23.0 (20-40) % [place] % (Auto) 10.0 (2-11) % Eos % (Auto) 0.4 (0-4) % Baso % (Auto) 0.3 (0-2) % Lymph # (Auto) 1.8 (1.2-4.9) X10*3/uL [place] # (Auto) 0.8 (0.1-1.2) X10*3/uL Eos # (Auto) 0.0 (0.0-0.4) X10*3/uL Baso # (Auto) 0.0 (0.0-0.2) X10*3/uL Abs Immat Gran (auto) 0.02 (0.00-0.03) X10*3/uL Absolute Neuts (auto) 5.2 (2.0-8.3) x10*3/uL Absolute Nucleated RBC 0.000 (0.0-0.012) X10*3/uL Nucleated RBC % (auto) 0.0 (0.0-0.2) /100WBC ESR 31 H (0-15) MM/HR Sodium 138 (135-145) mmol/L Potassium 4.2 (3.3-5.1) mmol/L Chloride 101 (96-108) mmol/L Carbon Dioxide 25 (22-29) mmol/L Anion Gap 16 (12-20) BUN 19 H (9-16) mg/dL Creatinine 0.83 (0.5-1.4) mg/dL Estim Creat Clear Calc 161.4 Estimated GFR > 60 Random Glucose 95 (60-115) mg/dL Calcium 9.5 (8.4-10.2) mg/dL Total Bilirubin 0.3 (0.0-1.0) mg/dL AST 24 (5-37) U/L ALT 33 (0-40) U/L Alkaline Phosphatase 95 (39-117) U/L C-Reactive Protein 2.85 H (< or = 0.50) mg/dL Total Protein 7.9 (6.5-8.0) g/dL Albumin 4.6 (3.5-5.0) g/dL Discharge Plan Discharge Clinical Impression: Dental infection Patient Disposition: Home, Self-Care Instructions: Dental Abscess (ED) Additional Instructions: Please take the antibiotic prescribed 2 times a day, approximately every 12 hours. You may use acetaminophen (Tylenol) as needed for pain. I have also sent a prescription for ibuprofen that you may use as well as needed for pain. Using warm compresses may also help. I think it would be reasonable for you to contact the [facility] and see if you can be seen at their dental clinic. My hope is that you will also get dental insurance through your new job in which case you could return to [facility]. If significantly worse return to the emergency room. Prescriptions: New amoxicillin-pot clavulanate 875-125 mg tablet 1 tab PO BID Qty: 14 0RF ibuprofen 600 mg tablet 600 mg PO Q6H PRN (Reason: pain) Qty: 14 0RF No Action (DME) Rib belt See Rx Instructions .ROUTE .MEDSUPPLY Qty: 1 0RF Rx Instructions: Wear the rib belt for 1-2 weeks as needed for rib pain ibuprofen 600 mg tablet 600 mg PO TID PRN (Reason: fever or pain) Qty: 20 0RF methadone 10 mg tablet 115 mg PO DAILY Referrals: [facility] [Provider Group] (Dental infection) Interventions: ED Discharge Assessment Last Done: 08/03/24 23:15 Discharge Date/Time: 08/03/24 23:15 Print Language: Japanese
--- NOTE | 2024-08-03 20:51 | MHC.EDTECH ---
unsuccessful venipuncture x2
[2024-08-03 22:13] VITALS: BP 127/66; PULSE 79; RESP 16; TEMP 36.8; O2SAT 100
[2024-08-03 22:40] LABS: MANUAL DIFF FLAG NO
[2024-08-03 22:42] LABS: Basophils Percent Auto 0.3 % (0-2); Eosinophils Percent Auto 0.4 % (0-4); Hematocrit 33.8 % (42.0-52.0); Hemoglobin 11.6 g/dl (14.0-18.0); Imm Gran Abs Auto 0.02 X10*3/uL (0.00-0.03); Imm Gran Pct Auto 0.3 % (0.0-0.4); Lymphocytes Absolute Auto 1.8 X10*3/uL (1.2-4.9); Mean Corpuscular HGB Conc 34.3 g/dl (31.0-36.0); Mean Corpuscular Hemoglobin 29.3 pg (27.0-33.0); Mean Corpuscular Volume 85.4 fL (80.0-98.0); Mean Platelet Volume 9.2 fL (9.4-12.4); Monocytes Absolute Auto 0.8 X10*3/uL (0.1-1.2); Neutrophils Absolute Auto 5.2 x10*3/uL (2.0-8.3); Platelet Count 234 X10*3/uL (160-400); Red Blood Count 3.96 X10*6/uL (4.60-5.80); Red Cell Distribution Width 14.1 % (11.0-16.0); White Blood Count 7.8 X10*3/uL (4.8-10.8)
[2024-08-03 22:55] LABS: Alanine Aminotransferase 33 U/L (0-40); Albumin Level 4.6 g/dL (3.5-5.0); Alkaline Phosphatase 95 U/L (39-117); Anion Gap 16 (12-20); Aspartate Amino Transferase 24 U/L (5-37); Bilirubin Total 0.3 mg/dL (0.0-1.0); Blood Urea Nitrogen 19 mg/dL (9-16); C Reactive Protein 2.85 mg/dL (< or = 0.50); Calcium 9.5 mg/dL (8.4-10.2); Carbon Dioxide 25 mmol/L (22-29); Chloride 101 mmol/L (96-108); Creatinine Clr Calc Pharmacy 161.4; Estimated Glomerular Filt Rate > 60; Glucose Random 95 mg/dL (60-115); Potassium 4.2 mmol/L (3.3-5.1); Sodium 138 mmol/L (135-145); Total Protein 7.9 g/dL (6.5-8.0)
[2024-08-03 23:15] VITALS: BP 0/0; PULSE 0; RESP 0; TEMP -17.7; TEMP 0; O2SAT 0
[2024-08-03 23:19] LABS: Erythrocyte Sedimentation Rate 31 MM/HR (0-15)
[2024-08-03] MEDS: Amoxicillin/Potassium Clav 875 MG TABLET PO (23:31)
== END 2024-08-03 23:15 | disposition home or self-care (01) ==
PROVIDERS: Physician Assistant; Emergency Provider Emergency Medicine; PCP Physician Assistant
DX: K04.7 Periapical abscess without sinus (principal); K08.89 Other specified disorders of teeth and supporting structures; F12.90 Cannabis use, unspecified, uncomplicated; F11.20 Opioid dependence, uncomplicated
CPT/HCPCS: 36415; 80053; 85025; 85652; 86140; 99283

== ENCOUNTER 2024-10-11 06:29 | Emergency (ER) | payer MEDICAID, SELFPAY ==
--- OUTSIDE RECORDS SUMMARY | 2024-10-11 06:32 | XMS_ITS | Continuity of Care Document ---
Author Organization [facility] Address [address] [address] Phone Care Team Providers Care Parts Puller Name Role Phone Jose Antonio Patterson MD Unavailable Unavailable Medications Medication Instructions Dosage Effective Dates (start - stop) Status Comments lorazepam 1 mg tablet take 1 tablet by oral route 3 times a day x 1 day, then twice a day x 1 day, then once a day x 1 day. - Active We need one more tablet buprenorphine HCl [address] 0.5 tablet by sublingual route prn withdrawals (COWS >4) every 4 hours day on Days #1 & #2, Four times a day on Day #3, Three times a day #4, Twice a day #5. and Once a day on Day #6. Allow to dissolve slowly in mouth without chewing or swallowing - Active clonidine HCl 0.1 mg tablet take 1 tablet by oral route every 6 hours as needed for withdrawal symptoms, hold prn BP Systolic < 100. 0.1 MG - Active Vistaril 50 mg capsule take 1 capsule by oral route 6 hours as needed for anxiety - Active Zofran 4 mg tablet take 1 Tablet by oral route every 6 hours as needed for nausea 4 MG - Active methocarbamol 750 mg tablet take 1 tablet by oral route every 6 hours as needed for muscle spasm as needed for muscle spasm 750 MG - Active buprenorphine HCl [address] 0.5 tablet by sublingual route every 4 hours day on Days #1 & #2, Four times a day on Day #3, Three times a day #4, Twice a day #5. and Once a day on Day #6. Allow to dissolve slowly in mouth without chewing or swallowing - No Longer Active lorazepam 1 mg tablet take 1 tablet by oral route 3 times a day x 1 day, then twice a day x 1 day, then once a day x 1 day. - No Longer Active Procedures Procedure Date Offic/outpt E&m New Mod-hi Drug Test Read By Direct Observ 021 Skin Test; Tuberculosis Intrad 21 Alcohol Breath Ecg-routine 12 Lead; W/intrpt Advance Directives Directive Yes / No Effective Date File Name No Information Encounters Encounter Description Practice Location Reason(s) For Visit Diagnoses Date Provider Providers Copied on Encounter [facility], [address], [id number] , tel: [phone] [facility] [place] No Information Yesenia Brady. [address] [facility], [place], [place], [id number] , [place]. tel:+ [phone] Offic/outpt E&m [facility], [address] [address], [place], [place], [id number] , tel: [phone] Bernice [facility], [facility]. [place] Detox (chief complaint) Opioid use disorder, severe, dependenceTetrahydroc annabinol (THC) dependenceChronic midline low back pain without sciaticaOther chronic painEncounter for screening for respiratory tuberculosis 1 Yesenia Brady. [address] [facility], [address], [place], [place], [id number] , [place]. tel:+ [phone] Family History Family Member Type Diagnosis Age At Onset No Information Payers Payer name Insurance type Covered alliance party ID Authoriza tion(s) No Information Social History Type Description Quantity Date Captured Comments Sex Male Smoking Status No Information Chief Complaint And Reason For Visit No Information Reason For Referral Reason For Referral No Information Plan Of Treatment Date Type Action Status Goal H&P. Due on due History Of Present Illness Encounter Date Complaint History Of Prese nt Illness Detox 21 year old male here from [facility], presents to office from for medical detoxification.Substance Use Hx: N-Pyrrolidino Etonitazene Powder x 2 months. Has been consistently smoking 100 mg's per day . Last use: 3 days ago. Methadone x 7 -8 monts. Has been consistently using 105 mg's per day . Last use: 3 weeks ago.Marijuana x 9 years. Has been consistently smoking flower, wax, using edibles. He uses 2 grams of flower. With the wax 1/2 gram a week. Today.Fentanyl x 7 years. Has not used in a couple of months. Was using 2 bundles, IV. Last use: Two months ago.Withdrawal symptoms: body aches, runny nose, restlessness, UDS: MTD, THCBAC: 0.000TB Test: Left Forearm byKenia Allison, ETELVINA/M.A.EKG: Performed in office, today.PRIOR TREATMENTS: 1. Has been in multiple treatment centers.Withdrawal Sx: Restless, runny nose, joints hurt. SOB.Seizure Hx: None.Mental Health Hx: Anxiety & Depression.Past Medical Hx: None.Past Surgical Hx: None.Allergies: NKAMedications: none. Previously on Gabapentin for LBP.Sleep medication preference: MelatoninSocial Hx:Tobacco: smokes 1 ppdMarital Status: SingleChildren: None.Education / Employment: Unemployed.Destination after Detox: Home.No pending legal issues. Functional Status Date Functional Assessmen t No Information Instructions Date Instruction Additional Infor jeffery Admit to [facility] Signs per routine.CounselingRandom UDS 1-2 x a week prn. Fax copy of any positive results to office [phone]. Order void after 10 days. No confirmations on negative test results. RTO x 3-4 days.Recommend MAT after detox.Subutex taper protocolCall me prn CIWA >20 or COWS>30Patient meets ASAM criteria and is certified today for a Subacute Detox level of care. Will re-evaluate tomorrow. Related to Opioid use disorder, severe, dependence Assessments Type Assessment Date No Information Patient Care Teams Name Effective Dates (start - stop) Status Members No Information
[2024-10-11 06:33] VITALS: BP 154/93; PULSE 97; RESP 18; TEMP 38.2; O2SAT 95; BMI 29.3
== END 2024-10-11 07:18 | disposition left against medical advice (07) ==
PROVIDERS: Emergency Provider Emergency Medicine
DX: F11.10 Opioid abuse, uncomplicated (principal)
CPT/HCPCS: 99281